=== PATIENT | male | born 1950 | race Caucasian/White ===

== ENCOUNTER 2023-05-18 15:28 | Emergency (ER) | payer OTHER ==
[~2023-05-18] VITALS: Ht 177.8 cm; Wt 83.9 kg
[2023-05-18 15:30] VITALS: BP_SYST 160; PULSE 55; RESP 19; TEMP 97.9; O2SAT 100
[2023-05-18] MEDS ORDERED: CEPH250C PO (17:24)
[2023-05-18 18:02] VITALS: BP_SYST 160; PULSE 55; RESP 19; TEMP 97.9; O2SAT 100
[2023-05-18] MEDS ORDERED: HYDROcodone/ACETAMIN 5-325 MG TAB (NORCO/ VICODIN) PO ONE (18:30)
== END 2023-05-18 18:01 | disposition home or self-care (01) ==
LOC: SED 15:28
DX: S62.637B Displaced fracture of distal phalanx of left little finger, initial encounter for open fracture (principal); S00.01XA Abrasion of scalp, initial encounter; Z79.899 Other long term (current) drug therapy; W22.8XXA Striking against or struck by other objects, initial encounter; Y93.89 Activity, other specified; Y92.89 Other specified places as the place of occurrence of the external cause; Y99.8 Other external cause status
CPT/HCPCS: 70450-TC; 76376; 99284